=== PATIENT | female | born 1980 | race Caucasian/White ===

== ENCOUNTER 2018-02-15 18:20 | Emergency (ER) | payer OTHER ==
--- NOTE | 2018-02-15 19:55 | RAD ---
INDICATION: Right ankle pain. COMPARISON: Comparison is made with a prior study from June 19, 2008. TECHNIQUE: 3 views of the right ankle were obtained. FINDINGS: The bones are normal alignment. No fracture is seen. There is moderate to severe arthritic change in the tibiotalar joint. There are prominent anterior osteophytes which would predispose to anterior impingement. These findings have progressed slightly from the prior exam. There is a small spur arising from the inferior calcaneus. IMPRESSION: MODERATE TO SEVERE OSTEOARTHRITIC CHANGE IN THE TIBIOTALAR JOINT.
--- NOTE | 2018-02-15 20:07 | ED ---
Neelam Ashraf Rebecca, scribed for Jame Sherman MD on 02/15/18 at 1923 . Lower Extremity - HPI Summary HPI Summary: Pt is a 37 y/o F who presents to ED c/o R ankle pain s/p twisting. 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 Initially, pain was mild and yesterday throughout the day it gradually worsened. Pain is currently moderate, ranked 6/10. Pain is predominantly on the lateral side of the ankle. Sx aggravated by movement, alleviated by nothing. Confirms she has been ambulating on the ankle. - History of Current Complaint Chief Complaint: EDExtremityLower Stated Complaint: RT ANKLE INURY Time Seen by Provider: 02/15/18 19:12 Hx Obtained From: Patient Hx Last Menstrual Period: just ended Mechanism Of Injury: Twisted Onset of Pain: Days - 2 days, Prior to Arrival Onset/Duration: Still Present Severity Initially: Mild Severity Currently: Moderate Pain Intensity: 6 Pain Scale Used: 0-10 Numeric Location: Is Discrete @ - Right ankle Associated Signs And Symptoms: Positive: Negative Aggravating Factor(s): Movement Able to Bear Weight: Yes - Allergies/Home Medications Allergies/Adverse Reactions: Allergies Allergy/AdvReac Type Severity Reaction Status Date / Time MS Codeine [Codeine] Allergy Hives Verified 05/05/16 12:41 MS Erythromycin Allergy Hives Verified 05/05/16 12:41 [Erythromycin] PMH/Surg Hx/FS Hx/Imm Hx Endocrine/Hematology History: Denies: Hx Diabetes Respiratory History: Reports: Hx Asthma - Surgical History Surgery Procedure, Year, and Place: 4 c sections. 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 GENERAL: ~Patient is a well-developed and nourished female who is lying comfortable in the stretcher. Patient is not in any acute respiratory distress. HEAD AND FACE: No signs of trauma. No ecchymosis, hematomas or skull depressions. No sinus tenderness. EYES: PERRLA, EOMI x 2, No injected conjunctiva, no nystagmus. EARS: Hearing grossly intact. Ear canals and tympanic membranes are within normal limits. MOUTH: Oropharynx within normal limits. NECK: Supple, trachea is midline, no adenopathy, no JVD, no carotid bruit, no c- spine tenderness, neck with full ROM. CHEST: Symmetric, no tenderness at palpation LUNGS: Clear to auscultation bilaterally. No wheezing or crackles. CVS: Regular rate and rhythm, S1 and S2 present, no murmurs or gallops appreciated. EXTREMITIES: FROM in all major joints, no cyanosis or clubbing. Mild swelling and tenderness over the lateral malleolus. She has FROM and is neurovascularly intact. NEURO: Alert and oriented x 3. No acute neurological deficits. Speech is normal and follows commands. SKIN: Dry and warm Triage Information Reviewed: Yes Vital Signs On Initial Exam: Initial Vitals Temp Pulse Resp BP Pulse Ox 98.0 F 66 16 116/57 100 02/15/18 18:30 02/15/18 18:30 02/15/18 18:30 02/15/18 18:30 02/15/18 18:30 Vital Signs Reviewed: Yes Diagnostics - Vital Signs Vital Signs Temp Pulse Resp BP Pulse Ox 02/15/18 18:30 98.0 F 66 16 116/57 100 - Laboratory Lab Statement: Any lab studies that have been ordered have been reviewed, and results considered in the medical decision making process. - Radiology Ankle XR Radiology Interpretation Completed By: Radiologist - MODERATE TO SEVERE OSTEOARTHRITIC CHANGE IN THE TIBIOTALAR JOINT. ED physician reviewed this radiology report. Re-Evaluation - Re-Evaluation First Eval Re-Evaluation Time: 20:01 Comment: Discussed results and D/C plan. Lower Extremity Course/Dx - Course Assessment/Plan: Pt is a 37 y/o F who presents to ED c/o R ankle pain s/p twisting 2 days ago frmo slipping on wet floor. Initially, pain was mild, worsened yesterday, currently moderate, ranked 6/10. Pain is predominantly on the lateral side of the ankle. Sx aggravated by movement. Has been ambulating on the ankle. Offered pain medication and declined. Ankle XR reveals "MODERATE TO SEVERE OSTEOARTHRITIC CHANGE IN THE TIBIOTALAR JOINT." Pt will be D/C to home with Dx of sprain and ankle arthritis with a followup with her PCP. She understands and agrees. Allergies noted. - Diagnoses Provider Diagnoses: Ankle sprain, Ankle arthritis Discharge - Sign-Out/Discharge Documenting (check all that apply): Discharge/Admit/Transfer - Discharge - Discharge Plan Condition: Stable Disposition: HOME Patient Education Materials: Ankle Sprain (ED), Crutch Instructions (ED) Referrals: [place] Her THEATRICAL DRESSER [Primary Care Provider] - 3 Days Additional Instructions: RETURN TO EMERGENCY DEPARTMENT FOR ANY RETURNING OR WORSENING SYMPTOMS. The documentation as recorded by the Neelam stark Rebecca accurately reflects the service I personally performed and the decisions made by Whit camara Abdul, MD.
[2018-02-15 20:23] VITALS: BP 119/56
== END 2018-02-15 20:22 | disposition home or self-care (01) ==
LOC: ED 18:20
DX: S93.401A Sprain of unspecified ligament of right ankle, initial encounter (principal); X50.0XXA Overexertion from strenuous movement or load, initial encounter; Y92.9 Unspecified place or not applicable; M25.571 Pain in right ankle and joints of right foot; F17.210 Nicotine dependence, cigarettes, uncomplicated; M19.071 Primary osteoarthritis, right ankle and foot
CPT/HCPCS: 99282

== ENCOUNTER 2019-11-05 18:06 | Emergency (ER) | payer OTHER ==
--- OUTSIDE RECORDS SUMMARY | 2019-11-05 18:23 | XMS REPORT | Continuity of Care Document ---
:1980 External Reference #:[id number] Author Name Noble Celestin M.D. (transmitted by agent of provider Ashely Loya) Address [address] [place] [address] Care Team Providers Name Role Phone Rich Velazquez MD - Gynecology Care Team Information Journalists And Other Writers Jay Rodriguez MD - Care Team Information Journalists And Other Writers [phone] Otolaryngology Cece Cooper M.D. - Family Medicine Care Team Information Journalists And Other Writers Problems Active Problems Provider Date Vulval intraepithelial neoplasia grade 3 [place] Her NP Onset: 01/11/2014 Note: Dx [facility] [place] [place] 05/21/[facility]: vulvectomy Dr. mainor Dwyer supervised by Dr. Thomason Impaired dentition Krzysztof Perez M.D.,FACP Onset: 11/06/2017 External [facility]de[facility] Ziggy Real M.D. Onset: 01/16/2018 Social History Type Date Description Comments Sex Unknown ETOH Use Denies alcohol use Tobacco Use Start: Unknown Patient is a current 1/2 PPD smoker, smokes every day Recreational Drug Use Denies Drug Use Smoking Status Reviewed: 10/25/19 Patient is a current 1/2 PPD smoker, smokes every day Exercise Type/Frequency Exercises regularly walks every other day approximately 3 mi Allergies, Adverse Reactions, Alerts Active Allergies Reaction Severity Comments Date Erythromycin 04/27/2015 Codeine 04/27/2015 Medications Active Medications SIG Qnty Indications Ordering Provider Date Tramadol HCL 1 tab twice a 28tabs Emili Salgado DO 10/21/2019 50mg day as needed Tablets Ibuprofen as needed Unknown 200mg Capsules Immunizations CPT Code Status Date Vaccine Lot # [id number] Given 04/27/2015 Tdap - Tetanus/Diptheria/Acellular Pertussis [id number] Vital Signs Date Vital Result Comment 10/25/2019 2:27pm Height 62 inches 5'2" Weight 116.00 lb Heart Rate 88 /min BP Systolic 116 mmHg BP Diastolic 50 mmHg Respiratory Rate 16 /min Pain Level 8 BMI (Body Mass Index) 21.2 kg/m2 10/19/2019 9:58am Height 62 inches 5'2" Weight 160.12 lb Heart Rate 72 /min BP Systolic 106 mmHg BP Diastolic 66 mmHg Body Temperature 97.8 F O2 % BldC Oximetry 93 % BMI (Body Mass Index) 29.3 kg/m2 Results Description No Information Available Procedures Description No Information Available Medical Devices Description No Information Available Encounters Type Date Location Provider Dx Diagnosis Office Visit 10/25/2019 [facility] Noble Celestin M.D. M16.11 Unilateral 2:00p at [place] primary osteoarthritis, right hip Office Visit 10/19/2019 [facility] Emili Salgado, M25.551 Pain in right hip 10:[facility] - [address] DO Assessments Date Code Description Provider 10/25/2019 M16.11 Unilateral primary osteoarthritis, right hip Noble Celestin M.D. 10/19/2019 M25.551 Pain in right hip Emili Salgado DO Plan of Treatment Future Appointment(s):12/27/2019 2:15 pm - Noble Celestin M.D. at [facility] at [id number]/25/2019 - Noble Celestin M.D.M16.11 Unilateral primary osteoarthritis, right hipNew Therapy:Physical TherapyReferral:Daniel Nguyen MD , RheumatologyFollow up:Follow up: 2-3 months Try aleve: 2 tablets up to twice a day for the right hip pain Functional Status Description No Information Available Mental Status Description No Information Available Referrals Refer to Reason for Referral Status Appt Date Daniel Nguyen MD Created [address] [facility] [place] [address] [place] [address] [phone] Diana Sultana MD Sent [address] [place] [address] [address] [place] [id number] [phone]
[2019-11-05 18:45] LABS: Influenza A Molecular NEGATIVE (Negative); Influenza B Molecular NEGATIVE (Negative)
[2019-11-05] MEDS ORDERED: Acetaminophen TAB* 325 MG PO ONE (19:12)
[2019-11-05 19:55] VITALS: BP 134/74
[2019-11-05 20:37] LABS: ABS Lymphocytes 0.4 10^3/ul (1.0-4.8); ABS Monocytes 0.2 10^3/ul (0-0.8); ABS Neutrophils 6.3 10^3/ul (1.5-7.7); Hematocrit 35 % (35-47); Hemoglobin 12.5 g/dL (12.0-16.0); Lymphocyte % 5.5 %; Mean Corpuscular HGB Conc 36 g/dL (31-36); Mean Corpuscular Hemoglobin 31 pg (27-31); Mean Corpuscular Volume 88 fL (80-97); Mean Platelet Volume 8.2 fL (7.4-10.4); Platelet Count 132 10^3/uL (150-450); Red Blood Count 4.03 10^6 /uL (3.70-4.87); Red Cell Distribution Width 14 % (10-15)
[2019-11-05 20:54] LABS: Albumin/Globulin Ratio 1.7 (1-3); BUN/Creatinine Ratio 14.1 (8-20); Calcium 8.7 mg/dL (8.6-10.3); EGFR African American 126.3 (>60); EGFR Non-African American 104.4 (>60); Globulin 2.3 g/dL (2-4); Potassium 3.4 mmol/L (3.5-5.0); Total Bilirubin 1.1 mg/dL (0.2-1.0); Total Protein 6.3 g/dL (6.4-8.9)
[2019-11-05 20:55] LABS: Troponin I 0.01 ng/mL (<0.03)
--- NOTE | 2019-11-07 14:55 | ED ---
Imaging and Labs Follow Up Follow Up Type: Imaging Labs/Culture Result: pneumonitis vs. consolidation Imaging Result: pneumonitis vs. consolidation Patient Communication/Plan: pt left without being seen - xray completed from waiting area
== END 2019-11-06 00:09 | disposition left against medical advice (07) ==
LOC: ED 18:06
DX: Z53.21 Procedure and treatment not carried out due to patient leaving prior to being seen by health care provider (principal); R50.9 Fever, unspecified; R06.02 Shortness of breath; Z88.1 Allergy status to other antibiotic agents; Z88.5 Allergy status to narcotic agent
CPT/HCPCS: 36415; 71046; 80053; 83605; 84484; 85025; 87040; 99281; A9270-GY